=== PATIENT | female | born 1965 | race Two or more races ===

== ENCOUNTER 2019-12-21 08:29 | Outpatient (CLI) | payer OTHER ==
[~2019-12-21] VITALS: Ht 172.7 cm; Wt 95.3 kg
[2019-12-21] MEDS ORDERED: LOSARTAN POTASS50 MG (11:49)
[2019-12-21] MEDS ORDERED: KAPSPARGO SPRIN25 MG (11:58)
[2019-12-21] MEDS ORDERED: PROTONIX40 MG PO (12:04)
[2019-12-21] MEDS ORDERED: PEPCID AC20 MG PO (12:05)
== END 2019-12-21 12:21 | disposition home or self-care (01) ==
LOC: OFIC 805 08:29
PROVIDERS: ATTEND Otolaryngology Otology & Neurotology
DX: J02.8 Acute pharyngitis due to other specified organisms (principal); K21.9 Gastro-esophageal reflux disease without esophagitis; R13.19 Other dysphagia